=== PATIENT | male | born 1975 | race Two or more races ===

== ENCOUNTER 2022-01-26 09:42 | Day surgery (SDC) | payer MEDICAID ==
[~2022-01-26] VITALS: Ht 165.1 cm; Wt 117.9 kg
[~2022-01-26 09:42] MED LIST: GLIP5TAB12 PO; METF-490 PO
[2022-01-26] MEDS ORDERED: ONDANSETRON HCL 4 MG/2 ML VIAL IV ONE (09:43)
[2022-01-26] MEDS ORDERED: ceFAZolin 1GM/50ML 100 ML IV ONE (11:48)
[2022-01-26] MEDS ORDERED: fentaNYL CITRATE 100 MCG/2 ML VL ONE (12:01)
[2022-01-26] MEDS ORDERED: MIDAZOLAM HCL 2MG/2ML 2ml VIAL (1mg/ml) ONE (12:03)
[2022-01-26] MEDS ORDERED: BACITRACIN TOP OINT 1 UD PKG TOP ONE (12:51)
[2022-01-26] MEDS ORDERED: HYDROmorphone HCL 2 MG/ML VL/or syr IV PRN (13:00)
[2022-01-26] MEDS ORDERED: ONDANSETRON HCL 4 MG/2 ML VIAL IV PRN (13:00)
[2022-01-26] MEDS ORDERED: PROPOFOL 10 MG/ML 20 ML IV ONE (13:16)
[2022-01-26] MEDS ORDERED: ePHEDrine SULFATE 50 MG/ML AMP ONE (13:26)
[2022-01-26 14:30] VITALS: BP 117/67
== END 2022-01-26 14:50 | disposition home or self-care (01) ==
LOC: SUR 09:42
PROVIDERS: ATTEND Urology
DX: N47.1 Phimosis (principal); N47.6 Balanoposthitis; Z90.49 Acquired absence of other specified parts of digestive tract; E11.9 Type 2 diabetes mellitus without complications; E66.01 Morbid (severe) obesity due to excess calories; Z68.41 Body mass index [BMI] 40.0-44.9, adult; Z20.822 Contact with and (suspected) exposure to COVID-19
CPT/HCPCS: 54161; 82962; 88305; J0690; J2250; J2405; J2704; J3010; U0003